=== PATIENT | male | born 1955 | race Caucasian/White ===

== ENCOUNTER 2020-02-10 21:53 | Inpatient (IN) | payer OTHER ==
[~2020-02-10] VITALS: Ht 167.6 cm; Wt 81.6 kg
--- NOTE | 2020-02-10 22:00 | NUR ---
ambulated to bed 5 with steady gait.
[2020-02-10 22:01] VITALS: BP 141/95
--- NOTE | 2020-02-10 22:15 | NUR ---
64 year old male c/o midsternal chest pain x 5 hours that is non radiating. pt reports 8/20 chest pain. denies n/v/d. denies sob/cough. denies headache/ blurry vision. pt a/o x 4. rr even and unlabored. cbl sounds. VSS. abdomen soft and nontender. bowel sounds normoactive on all quadrants. pt is ambulatory with steady gait. awaiting MSE. connected to cardiac monitoring and pulse oximetry monitoring . pmhx: htn, dm II, bone marrow transplant, 2 cardiac stents. nka
--- NOTE | 2020-02-10 22:24 | NUR ---
Dr. Grider examining patient.
[2020-02-10] MEDS ORDERED: NITROGLYCERIN 2% 1 GM PKT TP ONE (22:25)
[2020-02-10] MEDS ORDERED: NACL 0.9% 500 ML IV ONE (22:25)
[2020-02-10] MEDS ORDERED: MORPHINE SULFATE 2 MG/ML SYR IVP ONE (22:25)
--- NOTE | 2020-02-10 22:29 | NUR ---
X-Ray at bedside.
[2020-02-10 22:51] LABS: BASOPHILS # (AUTO) 0.1 K/uL (0.00-0.22); BASOPHILS % (AUTO) 0.5 % (0.0-2.0); EOSINOPHILS # (AUTO) 0.4 K/uL (0-0.4); EOSINOPHILS % (AUTO) 4.1 % (0.0-4.0); HEMATOCRIT 45.8 % (36-52); HEMOGLOBIN 15.5 g/dL (12.0-18.0); LYMPHOCYTES # (AUTO) 1.8 K/uL (2.0-11.5); LYMPHOCYTES % (AUTO) 17.2 % (20.5-51.1); MEAN CORPUSCULAR HEMOGLOBIN 32 pg (27-31); MEAN CORPUSCULAR HGB CONC 34 g/dL (33-37); MEAN CORPUSCULAR VOLUME 95.6 fL (80-94); MONOCYTES % (AUTO) 9.5 % (1.7-9.3); NEUTROPHILS # (AUTO) 7.3 K/uL (1.8-7.7); NEUTROPHILS % (AUTO) 68.7 % (42.2-75.2); PLATELET COUNT (AUTO) 296 K/uL (140-450); RED BLOOD CELL COUNT(AUTO) 4.79 MIL/uL (4.20-6.10); RED CELL DISTRIBUTION WIDTH 14.2 % (11.6-13.7); WHITE BLOOD COUNT (AUTO) 10.7 K/uL (4.8-10.8)
[2020-02-10 23:06] LABS: ALBUMIN 3.8 g/dL (3.4-5.0); CARBON DIOXIDE 28.9 mmol/L (21-32); CREATININE 1.2 mg/dL (0.6-1.3); POTASSIUM 3.9 mmol/L (3.5-5.1); TOTAL BILIRUBIN 0.3 mg/dL (0.0-1.0)
[2020-02-10 23:09] LABS: PROTHROMBIN TIME 9.9 secs (10.8-13.4)
[2020-02-10] MEDS ORDERED: ASPIRIN 81 MG TAB.CHEW PO ONE (23:25)
--- NOTE | 2020-02-10 23:34 | NUR ---
observed sats decreased to 92%. placed on simple mask 4LPM. saturations 99%.
--- NOTE | 2020-02-10 23:36 | NUR ---
Stacy macias in [facility] - 02/10/20 at 2337 by STALIN VIKTORIYA EMERSON TRANSPORT TEAM AT [facility]
[2020-02-10] MEDS ORDERED: LEVO0.0712 PO (23:50)
[2020-02-10] MEDS ORDERED: ATOR20TA40 PO (23:50)
[2020-02-10] MEDS ORDERED: [UNRECOGNIZED DRUG - CODE] IM (23:50)
[2020-02-10] MEDS ORDERED: OMEP-283 PO (23:50)
[2020-02-10] MEDS ORDERED: METF-1022 PO (23:50)
[2020-02-10] MEDS ORDERED: hePARIN / DEXT 5% PREMIX 250 ML IV SCH (23:55)
--- NOTE | 2020-02-11 01:10 | NUR ---
pt ambulated to restroom with steady gait.
[2020-02-11] MEDS: hePARIN / DEXT 5% PREMIX 250 ML IV SCH ×2 (02:37→08:37)
--- NOTE | 2020-02-11 02:48 | NUR ---
heparin protocol initiated. please refer to EMAR for dosing.
[2020-02-11] MEDS ORDERED: guaiFENesin DM 200/20 MG-10 ML 10 ML UDC PO PRN (06:30)
[2020-02-11] MEDS ORDERED: POTASSIUM CHLORIDE 10 MEQ TABER PO PRN ×2 (06:30→17:37)
[2020-02-11] MEDS ORDERED: DOCUSATE SODIUM 100 MG GELCAP PO PRN (06:30)
[2020-02-11] MEDS ORDERED: ZOLPIDEM 5 MG TAB PO PRN (06:30)
[2020-02-11] MEDS ORDERED: HYDROcodone/APAP 7.5/325 MG 1 TAB PO PRN (06:30)
[2020-02-11] MEDS ORDERED: ONDANSETRON 4 MG/2 ML VIAL IM/IVP PRN (06:30)
[2020-02-11] MEDS ORDERED: ACETAMINOPHEN 325 MG TAB PO PRN (06:30)
[2020-02-11] MEDS ORDERED: MORPHINE SULFATE 2 MG/ML SYR IVP PRN (06:30)
[2020-02-11] MEDS ORDERED: NITROGLYCERIN 0.4 MG TAB SL PRN (06:45)
--- NOTE | 2020-02-11 07:11 | NUR ---
Transfer of care at this time from EWELINA Finn
--- NOTE | 2020-02-11 07:19 | NUR ---
Dr. Kelsey examining patient.
[2020-02-11 07:30] LABS: CHOL/HDL RATIO 5.1 (1-4.5); FREE T4 (FREE THYROXINE) 0.97 ng/dL (0.76-1.46); MAGNESIUM 1.3 mg/dL (1.8-2.4); PHOSPHORUS 3.4 mg/dL (2.5-4.9); THYROID STIMULATING HORMONE 4.34 uIU/mL (0.34-3.74)
[2020-02-11] MEDS ORDERED: HEPARIN PER PHARMACY MC PRN (07:30)
--- NOTE | 2020-02-11 07:41 | NUR ---
RECEIVED CRITICAL LAB OF TROPONIN 7.607
--- NOTE | 2020-02-11 07:41 | NUR ---
DR. MAY MADE AWARE.
--- NOTE | 2020-02-11 07:55 | NUR ---
SPOKE WITH SEALER OPERATOR, DR. PERES. INFORMED HIM OF CRITICAL TROPONIN RESULT AND HE STATED TO PLEASE TRANSFER PT OUT FOR HIGHER LEVEL OF CARE.
[2020-02-11] MEDS ORDERED: metFORMIN 500 MG TAB PO SCH (08:00)
--- NOTE | 2020-02-11 08:02 | NUR ---
RECEIVED CRITICAL OF PTT 87.6, WILL TITRATE HEPARIN.
--- NOTE | 2020-02-11 08:20 | NUR ---
HEPARIN DRIP TITRATED DOWN TO 13ML/HR.
--- NOTE | 2020-02-11 08:33 | NUR ---
COVID SWAB COLLECTED AND LAB CALLED FOR CLINICAL APPEALS SPECIALIST, PT TOLERATED WELL.
[2020-02-11] MEDS: METOPROLOL 25 MG TAB PO SCH ×2 (09:00→11:02)
[2020-02-11] MEDS ORDERED: lisinopriL 5 MG TAB PO SCH (09:00)
[2020-02-11] MEDS ORDERED: ATORVASTATIN 20 MG TAB PO SCH (09:00)
[2020-02-11] MEDS ORDERED: LEVOTHYROXINE 0.075 MG TAB PO SCH (09:00)
[2020-02-11] MEDS ORDERED: PANTOPRAZOLE 40 MG TABEC PO SCH (09:00)
[2020-02-11] MEDS ORDERED: ECOTRIN 81 MG TABEC PO SCH (09:00)
--- NOTE | 2020-02-11 09:22 | NUR ---
PT AMBULATED TO BATHROOM, STEADY GAIT.
--- NOTE | 2020-02-11 09:45 | NUR ---
VS WNL. PT RR EVEN AND UNLABORED. ALL NEEDS MET AT THIS TIME. WILL CONTINUE TO MONITOR. PT NPO FOR NOW, UNTIL HOSPITAL ACCEPTS PATIENT FOR HIGHER LEVEL OF CARE.
[2020-02-11 10:37] LABS: APPEARANCE,URINE CLEAR (CLEAR); BILIRUBIN,URINE NEGATIVE (NEGATIVE); BLOOD, URINE NEGATIVE (NEGATIVE); COLOR,URINE YELLOW (YELLOW); LEUKOCYTE ESTERASE ,URINE NEGATIVE (NEGATIVE); NITRITE, URINE NEGATIVE (NEGATIVE); UGLUCOSE NEGATIVE (NEGATIVE)
[2020-02-11 10:45] LABS: BARBITURATE, URINE NEGATIVE ng/ml (NEG <=200); BENZODIAZEPINE, URINE NEGATIVE ng/mL (NEG <=200); CANNABINOID, URINE NEGATIVE ng/mL (NEG <=50); COCAINE, URINE NEGATIVE ng/mL (NEG <=300); OPIATE, URINE POSITIVE ng/mL (NEG <=2000); PHENCYCLIDINE SCREEN,URINE NEGATIVE ng/mL (NEG <=25)
--- NOTE | 2020-02-11 11:00 | NUR ---
METOPROLOL & LISINOPRIL HELD DUE TO BP 109/71
--- NOTE | 2020-02-11 11:07 | NUR ---
PT C/O HEADACHE AND CHEST TIGHTNESS 12/27. WILL ADMINISTER PO NORCO 7.5 FOR PAIN RELIEF
--- NOTE | 2020-02-11 11:07 | NUR ---
DC PLANNING: PATIENT HAS ORDER TO TRANSFER TO HIGHER LEVEL OF CARE FOR COUNTY COURT JUDGE INTERVENTION. PER DR MAY CALLED DR CHRIS Wall IS ACCEPTED PATIENT AT [facility]. CALLED DR CHRIS Wall STATED HE CALLED [facility] COUNTY COURT JUDGE SPOKE WITH ALISA AND ARRANGED THE PROCEDURE TO BE DONE AT 3 PM. CALLED [facility] SPOKE WITH CLAY FANG AND FAXED ALL PAPERWORK AND COVID RESULT, AND FAXED TO PT'S INSURANCE [employer]. PER ANNALISA BED IS AVAILABLE AWAITING FOR AUTHORIZATION FROM [employer]. ARRANGED TRANSPORT WITH [facility] PLACED IT WILL CALL. REUBEN TO FOLLOW . Addendum: 02/11/20 at 1212 by Madelaine Catherine CM DC PLANNING: CALLED [facility] [phone] SPOKE WITH REUBEN TOBIAS STATED USUALLY [facility] TO CALL [facility] TO GET THE AUTH HOWEVER SHE WILL CALL ME BACK WITH IN 1/2 HR WITH THE AUTH. REUBEN TO FOLLOW
--- NOTE | 2020-02-11 13:47 | NUR ---
PER DIEM PHYSICAL THERAPIST ASSISTANT CALLED WITH # TO GIVE REPORT . NO ANSWER AND UNABLE TO LEAVE VOICEMAIL.
[2020-02-11 13:49] VITALS: BP 115/78
--- NOTE | 2020-02-11 13:49 | NUR ---
PT BEING TRANSFERRED FOR HIGHER LEVEL OF CARE AND HEADED TO [facility] AT [facility]. PT RR EVEN AND UNALABORED ,NO ACUTE DISTRESS.
--- NOTE | 2020-02-11 13:49 | NUR ---
Patient to be transferred to [facility]. Is being transferred due to NSTEMI, ELEVATED TROPONIN 7.607. Receiving facility has accepting physician and available space. ER physician has signed transfer form. Patient or responsible libertarian has agreed to transfer and signed form. Patient belongings inventoried and will be sent with patient. Copy of nursing notes, lab reports, EKG, Physicians Orders and X-rays to be sent with patient. Report called to TEVIN at receiving facility. [facility] ambulance service has PICKED UP PATIENT for transfer.
--- NOTE | 2020-02-11 14:02 | NUR ---
SPOKE TO EWELINA ABARCA FROM [facility] AND GAVE REPORT.
== END 2020-02-11 13:49 | disposition short-term general hospital (02) | DRG 282 ==
LOC: MED 21:53 → MTU 23:59
PROVIDERS: ADMIT Family Medicine; ATTEND Family Medicine
DX: I21.4 Non-ST elevation (NSTEMI) myocardial infarction (principal); E03.9 Hypothyroidism, unspecified; E11.9 Type 2 diabetes mellitus without complications; E78.5 Hyperlipidemia, unspecified; E83.42 Hypomagnesemia; E86.0 Dehydration; Z03.818 Encounter for observation for suspected exposure to other biological agents ruled out; I25.10 Atherosclerotic heart disease of native coronary artery without angina pectoris
CPT/HCPCS: 36415; 71045; 80053; 80305; 81003; 82150; 83036; 83690; 83735; 83880; 84100; 84436; 84439; 84443; 84479; 84484; 85025; 85610; 85730; 93005; J1644; J2270